=== PATIENT | male | born 1980 | race Caucasian/White ===

== ENCOUNTER 2021-08-28 02:51 | Emergency (ER) | payer BC, SELFPAY ==
[~2021-08-28] VITALS: Ht 182.9 cm; Wt 86.2 kg
[2021-08-28 02:51] VITALS: BP_SYST 122
--- NOTE | 2021-08-28 02:51 | NUR ---
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 Patient placed on cardiac exercise specialist. Introduced self to patient, positoned for comfort. continue to monitor. Patient resting but is agitated and grimacing in pain. Vital signs within normal range.
--- NOTE | 2021-08-28 02:51 | NUR ---
Placed in room 8 . Placed on hall monitor, blood pressure machine and pulse oximeter. To gown for exam. Side rails up. Report given to TAYLOR AGUILLON.
--- NOTE | 2021-08-28 02:55 | NUR ---
# 20 gauge angiocath placed to RAC. Use of asceptic technique. Opsite placed over site. Blood return noted. Flushed with 10 cc of normal saline. No evidence of infiltration noted. Patient tolerated well.
[2021-08-28] MEDS ORDERED: MORPHINE 4 MG INJ. 4 MG/ML VIAL ONE (02:58)
[2021-08-28] MEDS ORDERED: NACL 0.9% 1,000 ML IV ONE (03:00)
[2021-08-28] MEDS ORDERED: LORazepam 2 MG/ML VIAL IVP ONE (03:00)
[2021-08-28] MEDS ORDERED: ASPIRIN 81 MG TAB.CHEW PO ONE (03:00)
[2021-08-28] MEDS ORDERED: MORPHINE 4 MG INJ. 4 MG/ML VIAL IVP ONE (03:00)
--- NOTE | 2021-08-28 03:01 | NUR ---
patient medicated as ordered. will observe for any adverse reaction. bed to low position sr up, continue to monitor.
--- NOTE | 2021-08-28 03:02 | NUR ---
EKG performed at BS by self. Physician given copy of EKG for review.
[2021-08-28] MEDS ORDERED: KETOROLAC TROMETHAMINE 30 MG VIAL ONE (03:29)
[2021-08-28] MEDS ORDERED: DIAZEPAM 10 MG/2 ML DISP.SYRIN IVP ONE (03:30)
[2021-08-28] MEDS ORDERED: KETOROLAC TROMETHAMINE 30 MG VIAL IVP ONE (03:30)
[2021-08-28] MEDS ORDERED: DIAZEPAM 5 MG TABLET (VALIUM) PO ONE (03:30)
[2021-08-28] MEDS ORDERED: DIAZEPAM 5 MG TABLET (VALIUM) ONE (03:32)
--- NOTE | 2021-08-28 03:35 | NUR ---
Medicated toradol, asa 162mg and valium per MD orders. IVF infusing with no s/s of infiltration at this time. Will cont to monitor and observe for any adverse reaction. continue to monitor.
[2021-08-28 03:58] LABS: BASOPHILS # (AUTO) 0.1 K/uL (0.0-0.2); BASOPHILS % (AUTO) 0.9 % (0.0-2.0); EOSINOPHILS # (AUTO) 1.4 K/uL (0.0-0.4); EOSINOPHILS % (AUTO) 13.9 % (0.0-4.0); HEMATOCRIT 39.4 % (36-54); HEMOGLOBIN 13.4 g/dL (14.0-18.0); LYMPHOCYTES # (AUTO) 2.3 K/uL (1.0-5.5); LYMPHOCYTES % (AUTO) 21.8 % (20.5-51.5); MEAN CORPUSCULAR HEMOGLOBIN 28 pg (27-31); MEAN CORPUSCULAR HGB CONC 34 % (32-36); MEAN CORPUSCULAR VOLUME 82 fL (79.0-98.0); MONOCYTES # (AUTO) 0.6 K/uL (0.0-1.0); MONOCYTES % (AUTO) 6.2 % (1.7-9.3); NEUTROPHILS # (AUTO) 5.9 K/uL (1.8-7.7); NEUTROPHILS % (AUTO) 57.2 % (40.0-70.0); PLATELET COUNT (AUTO) 301 K/uL (130-430); RED BLOOD CELL COUNT(AUTO) 4.81 MIL/uL (4.2-6.2); RED CELL DISTRIBUTION WIDTH 13.8 % (9.0-15.0); WHITE BLOOD COUNT (AUTO) 10.4 K/uL (4.8-10.8)
[2021-08-28 04:08] LABS: CALCIUM 8.7 mg/dL (8.4-11.0); CREATININE 0.73 mg/dL (0.55-1.30)
[2021-08-28 04:17] LABS: ALBUMIN 3.5 g/dL (3.4-4.8); TOTAL BILIRUBIN 0.2 mg/dL (0.0-1.0)
--- NOTE | 2021-08-28 05:35 | NUR ---
Patient resting quietly. No acute distress noted. Vital signs within normal range. bed to low position sr up, continue to monitor level of comfort.
--- NOTE | 2021-08-28 07:30 | NUR ---
Report received from Christopher AGUILLON to assume care of patient
--- NOTE | 2021-08-28 07:35 | NUR ---
Patient awake, alert and oriented x 3. Patient informed we are awaiting second troponin for further dispo and possible discharge. VSS on satellite project site monitor. Will continue to monitor closely.
[2021-08-28] MEDS ORDERED: IBUP-1971 PO (09:21)
[2021-08-28] MEDS ORDERED: HYDR-3917 PO (09:21)
--- NOTE | 2021-08-28 09:45 | NUR ---
Patient given written and verbal discharge instructions and verbalizes understanding. ER MD discussed with patient the results and treatment provided. Patient in stable condition. ID arm band removed. IV catheter removed intact and dressing applied, no active bleeding. Rx of [place] and Motrin given. Patient educated on pain management and to follow up with PMD. Pain scale 2/10. Opportunity for questions provided and answered. Medication side effect fact sheet provided.
[2021-08-28 09:48] VITALS: BP_SYST 103
== END 2021-08-28 09:48 | disposition home or self-care (01) ==
LOC: SED 02:51
DX: R07.89 Other chest pain (principal); F17.290 Nicotine dependence, other tobacco product, uncomplicated; Z79.899 Other long term (current) drug therapy; Z91.010 Allergy to peanuts
CPT/HCPCS: 36415; 71045; 80053; 83880; 84484; 85025; 93005; 96361; 96374; 96375; 99285; J1885; J2060; J2270; J7030

== ENCOUNTER 2022-10-24 09:08 | Emergency (ER) | payer BC ==
[~2022-10-24] VITALS: Ht 182.9 cm; Wt 86.2 kg
[~2022-10-24 09:08] MED LIST: HYDR-3917 PO; IBUP-1971 PO
[2022-10-24 09:15] VITALS: BP_SYST 156
[2022-10-24] MEDS ORDERED: KETOROLAC TROMETHAMINE 30 MG VIAL IVP ONE (09:45)
[2022-10-24] MEDS ORDERED: NACL 0.9% 1,000 ML IV ONE (09:45)
[2022-10-24] MEDS ORDERED: fentaNYL CITRATE/PF 100 MCG/2 ML AMP IVP ONE (09:45)
[2022-10-24 10:04] LABS: ANION GAP 8 (5-15); CALCIUM 9.4 mg/dL (8.4-11.0); CHLORIDE 101 mmol/L (98-107); CREATININE 0.87 mg/dL (0.55-1.30); GLUCOSE 102 mg/dL (70-99); UREA NITROGEN, BLOOD 15 mg/dL (8-21)
[2022-10-24 10:09] LABS: GFR AFRICAN AMERICAN 124 mL/min (>90)
[2022-10-24 10:13] LABS: ALANINE AMINOTRANSFERASE 36 U/L (12-78); ALBUMIN 3.6 g/dL (3.4-4.8); ASPARTATE AMINOTRANSFERASE 20 U/L (10-37); TOTAL BILIRUBIN 0.3 mg/dL (0.0-1.0)
[2022-10-24 10:14] LABS: BASOPHILS # (AUTO) 0.2 K/uL (0.0-0.2); BASOPHILS % (AUTO) 1.2 % (0.0-2.0); EOSINOPHILS # (AUTO) 2.1 K/uL (0.0-0.4); EOSINOPHILS % (AUTO) 15.2 % (0.0-4.0); HEMATOCRIT 42.1 % (36-54); HEMOGLOBIN 14.4 g/dL (14.0-18.0); LYMPHOCYTES % (AUTO) 21.9 % (20.5-51.5); MEAN CORPUSCULAR HEMOGLOBIN 28 pg (27-31); MEAN CORPUSCULAR HGB CONC 34 % (32-36); MEAN CORPUSCULAR VOLUME 83 fL (79.0-98.0); MONOCYTES # (AUTO) 1.1 K/uL (0.0-1.0); MONOCYTES % (AUTO) 7.8 % (1.7-9.3); NEUTROPHILS # (AUTO) 7.3 K/uL (1.8-7.7); NEUTROPHILS % (AUTO) 53.9 % (40.0-70.0); PLATELET COUNT (AUTO) 387 K/uL (130-430); RED BLOOD CELL COUNT(AUTO) 5.11 MIL/uL (4.2-6.2); RED CELL DISTRIBUTION WIDTH 13.4 % (9.0-15.0); WHITE BLOOD COUNT (AUTO) 13.5 K/uL (4.8-10.8)
[2022-10-24] MEDS ORDERED: iohexoL 350 mgI/mL, 100 ML INFUS..BTL IV ONE (11:39)
[2022-10-24] MEDS ORDERED: DICY10CA13 PO (11:45)
[2022-10-24] MEDS ORDERED: PIPERACILLIN/TAZO 3.375 GM in NS 50 ML IV ONE (11:45)
[2022-10-24] MEDS ORDERED: PIPERACILLIN/TAZOBACTAM 3.375 GM/VIAL (ZOSYN) IV ONE (12:24)
[2022-10-24] MEDS ORDERED: ZIT250 PO (14:31)
[2022-10-24] MEDS ORDERED: HYDR-3917 PO (14:33)
[2022-10-24] MEDS ORDERED: IBUP-1971 PO (14:33)
[2022-10-24] MEDS ORDERED: ALBMDI INH (14:38)
[2022-10-24 14:54] VITALS: BP_SYST 127
== END 2022-10-24 14:56 | disposition home or self-care (01) ==
LOC: SED 09:08
DX: J18.9 Pneumonia, unspecified organism (principal); M54.6 Pain in thoracic spine; Z91.018 Allergy to other foods; Z79.899 Other long term (current) drug therapy
CPT/HCPCS: 99285; 96365; 71275; 71045; 96361; 96375; 80053; 83880; 85025; 85379; 87040; 84484; 36415; 93005; 83605; 76376; Q9967; J1885; J2543; J3010; J7030